=== PATIENT | female | born 1930 | race Caucasian/White ===

== ENCOUNTER 2019-03-05 14:03 | Emergency (ER) | payer MEDICARE ==
[~2019-03-05] VITALS: Ht 157.5 cm; Wt 53.1 kg
--- NOTE | 2019-03-05 14:20 | NUR ---
PT BIB SELF Sent by PCP FOR EVALUATION OF SOB AND LLE SWELLING, PT IS AAOX3, NOT IN RESPIRATORY DISTRESS ,HOOKED TO MONITOR, KEPT RESTED AND COMFORTABLE, WILL CONTINUE TO MONITOR.
--- NOTE | 2019-03-05 14:31 | NUR ---
AT BEDSIDE FOR EVAL.
[2019-03-05] MEDS ORDERED: FUROSEMIDE 40 MG/4 ML VIAL ONE (14:48)
--- NOTE | 2019-03-05 14:55 | NUR ---
IV LINE ESTABLISHED, BLOOD DRAWN AND SENT TO LAB
[2019-03-05] MEDS ORDERED: FUROSEMIDE 40 MG/4 ML VIAL IV ONE (15:00)
[2019-03-05 15:01] LABS: BASOPHILS # (AUTO) 0.1 /CMM (0.0-0.2); BASOPHILS % (AUTO) 1.8 % (0.0-2.0); EOSINOPHILS % (AUTO) 3.8 % (0.0-6.0); HEMATOCRIT 39 % (33-45); HEMOGLOBIN 12.9 g/dL (11.5-14.8); LYMPHOCYTES % (AUTO) 18.2 % (20.0-44.0); MEAN CORPUSCULAR HGB CONC 33 g/dl (31.0-36.0); MEAN CORPUSCULAR VOLUME 91 fL (82-100); MONOCYTES # (AUTO) 0.5 /CMM (0.1-1.30); MONOCYTES % (AUTO) 8.8 % (2.0-12.0); NEUTROPHILS # (AUTO) 3.7 /CMM (1.8-8.9); NEUTROPHILS % (AUTO) 67.4 % (43.0-81.0); PLATELET COUNT (AUTO) 261 /CMM (150-450); RED BLOOD CELL COUNT(AUTO) 4.31 MIL/uL (4.0-5.2); WHITE BLOOD COUNT (AUTO) 5.5 K/uL (4.3-11.0)
[2019-03-05 15:10] LABS: CALCIUM, SERUM 9.7 mg/dL (8.5-10.1); CARBON DIOXIDE 32 mmol/L (21-32); CHLORIDE 101 mmol/L (98-107); CREATININE 1.5 mg/dL (0.6-1.3); GLUCOSE 71 mg/dL (74-106); POTASSIUM 4.8 mmol/L (3.5-5.1); SODIUM SERUM 140 mmol/L (136-145); UREA NITROGEN, BLOOD 26 mg/dL (7-18)
[2019-03-05 15:23] LABS: B-TYPE NATRIURETIC PEPTIDE 2224 PG/ML (0-125)
--- NOTE | 2019-03-05 16:17 | NUR ---
[facility] PAGED
--- NOTE | 2019-03-05 16:38 | NUR ---
Patient does not wish to proceed with medical care recommended by Dr. Sanchez. Patient given information related to possible complications, up to and including , which could occur as a result of leaving the hospital at this time. Patient verbalizes understanding of risks involved due to leaving against medical advice. Patient has signed AMA form.
[2019-03-05 16:39] VITALS: BP 110/61
== END 2019-03-05 16:39 | disposition left against medical advice (07) ==
LOC: ER 14:10
DX: I11.0 Hypertensive heart disease with heart failure (principal); I50.9 Heart failure, unspecified; R60.0 Localized edema; Z95.0 Presence of cardiac pacemaker
CPT/HCPCS: 36415; 80048; 83880; 84484; 85025; 85730; 96374; 99283; J1940

== ENCOUNTER 2019-03-08 06:09 | Inpatient (IN) | payer MEDICARE ==
[~2019-03-08] VITALS: Ht 157.5 cm; Wt 47.4 kg
[2019-03-08] MEDS ORDERED: NITROGLYCERIN PACKET 1 GM PACKET ONE (06:28)
[2019-03-08] MEDS ORDERED: ASPIRIN 325 MG TABLET ONE (06:29)
--- NOTE | 2019-03-08 06:29 | NUR ---
PATIENT CAME TO ER BED 9 W/ DAUGHTER AND . PATIENT STATES THAT SHE HAS LEFT SIDED CHEST PAIN, DOES NOT RADIATE. PATIENT IS ON COUMADIN DAILY, PER PT AND DAUGHTER'S REPORT. AAOX4. NO SOB. BREATHING EVENLY AND UNLABORED. NOT IN ANY DISTRESS. 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
--- NOTE | 2019-03-08 06:29 | NUR ---
BLOOD DRAWN AND SENT TO LAB
[2019-03-08] MEDS ORDERED: NITROGLYCERIN PACKET 1 GM PACKET TD ONE (06:30)
[2019-03-08] MEDS ORDERED: ASPIRIN 325 MG TABLET PO ONE (06:30)
--- NOTE | 2019-03-08 07:00 | NUR ---
XRAY AT BEDSIDE
[2019-03-08 07:02] LABS: BASOPHILS % (AUTO) 0.5 % (0.0-2.0); EOSINOPHILS % (AUTO) 4.6 % (0.0-6.0); HEMATOCRIT 40 % (33-45); HEMOGLOBIN 13.1 g/dL (11.5-14.8); LYMPHOCYTES # (AUTO) 1.1 /CMM (0.8-4.8); LYMPHOCYTES % (AUTO) 23.2 % (20.0-44.0); MEAN CORPUSCULAR HGB CONC 33 g/dl (31.0-36.0); MEAN CORPUSCULAR VOLUME 91 fL (82-100); MONOCYTES # (AUTO) 0.6 /CMM (0.1-1.30); MONOCYTES % (AUTO) 13.7 % (2.0-12.0); NEUTROPHILS # (AUTO) 2.6 /CMM (1.8-8.9); PLATELET COUNT (AUTO) 247 /CMM (150-450); RED BLOOD CELL COUNT(AUTO) 4.42 MIL/uL (4.0-5.2); WHITE BLOOD COUNT (AUTO) 4.5 K/uL (4.3-11.0)
[2019-03-08 07:14] LABS: CALCIUM, SERUM 9.5 mg/dL (8.5-10.1); CARBON DIOXIDE 28 mmol/L (21-32); CHLORIDE 101 mmol/L (98-107); CREATININE 1.4 mg/dL (0.6-1.3); GLUCOSE 94 mg/dL (74-106); POTASSIUM 4.4 mmol/L (3.5-5.1); SODIUM SERUM 138 mmol/L (136-145); UREA NITROGEN, BLOOD 28 mg/dL (7-18)
[2019-03-08 07:26] LABS: ALANINE AMINOTRANSFERASE 16 U/L (12-78); ALBUMIN 3.9 g/dL (3.4-5.0); ALKALINE PHOSPHATASE 135 U/L (46-116); ASPARTATE AMINOTRANSFERASE 23 U/L (15-37); B-TYPE NATRIURETIC PEPTIDE 1972 PG/ML (0-125); BILIRUBIN,DIRECT 0.2 mg/dL (0.0-0.2); BILIRUBIN,TOTAL 0.7 mg/dL (0.2-1.0); TOTAL PROTEIN, SERUM 7.3 g/dL (6.4-8.2)
--- NOTE | 2019-03-08 07:29 | NUR ---
REPORT GIVEN TO VAN WHITT FOR GI[facility].
--- NOTE | 2019-03-08 07:29 | NUR ---
ENDORSEMENT RECEIVED FROM SOFIYA WHITT FOR GI[facility]
--- NOTE | 2019-03-08 07:51 | NUR ---
PAGED [facility] TO FOLLOW UP
[2019-03-08] MEDS ORDERED: FERR325T23 PO (08:23)
[2019-03-08] MEDS ORDERED: SPIR25TA6 PO (08:23)
[2019-03-08] MEDS ORDERED: FOLI0.8T PO (08:23)
[2019-03-08] MEDS ORDERED: WARF1TAB47 PO (08:23)
[2019-03-08] MEDS ORDERED: WARF2TAB57 PO (08:23)
[2019-03-08] MEDS ORDERED: METH2.5T14 PO (08:23)
[2019-03-08] MEDS ORDERED: TORS20TA3 PO (08:23)
--- NOTE | 2019-03-08 09:19 | NUR ---
REPORT GIVEN TO TANNER WHITT FOR ADMISSION
[2019-03-08 09:45] VITALS: BP 123/68
--- NOTE | 2019-03-08 09:45 | NUR ---
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 Pt c/o bilateral lower legs 4/10 pain, skin assessment done and picture taken, pt high fall risk, bed side commode next to bed for safety, call light within the pt. Dr. Mcintyre aware new pt and medications. Needs attendant and anticipated, safety precaution monitoring all the time.
[2019-03-08] MEDS ORDERED: ACETAMINOPHEN 325 MG TABLET PO PRN (10:30)
[2019-03-08] MEDS ORDERED: MAG HYDROX/AL HYDROX/SIMETH 30 ML UDC PO PRN (10:30)
[2019-03-08] MEDS ORDERED: MORPHINE SULFATE INJ 2 MG/ML DISP.SYRIN IV PRN (10:30)
[2019-03-08] MEDS ORDERED: HYDROCODONE/APAP 5/325MG 1 EACH TABLET PO PRN (10:30)
[2019-03-08] MEDS ORDERED: ZOLPIDEM TARTRATE 5 MG TABLET PO PRN (10:30)
[2019-03-08] MEDS ORDERED: ONDANSETRON HCL/PF 4 MG/2 ML VIAL IVP PRN (10:30)
[2019-03-08] MEDS ORDERED: NITROGLYCERIN 0.4 MG/TAB BOTTLE SL PRN (10:30)
[2019-03-08] MEDS ORDERED: MAGNESIUM HYDROXIDE 30 ML UDC PO PRN (10:30)
[2019-03-08] MEDS ORDERED: ENOXAPARIN SODIUM 40 MG/0.4 ML DISP.SYRIN SQ SCH (10:30)
[2019-03-08] MEDS ORDERED: Z GUARD REMEDY 2 OZ OINT TP PRN (10:30)
[2019-03-08] MEDS: ENOXAPARIN SODIUM 30 MG/0.3 ML DISP.SYRIN SQ SCH (12:28)
--- NOTE | 2019-03-08 13:35 | NUR ---
RN NOTES PATIENT WITH THE PT AT THIS TIME IN THE HALLWAY AMBULATING STABLE, REFUSED PAIN. PATENT STATE "I WILL GO HOME BECAUSE OF THANH TONIGHT, AND DO NOT GIVE MY HUSBANDS SHOES HE WANTED GO HOME EITHER". CONTINUED MONITORING.
[2019-03-08 16:00] VITALS: BP 119/67
[2019-03-08] MEDS: FERROUS SULFATE (325 MG) 325 MG/TAB TABLET PO SCH (16:19)
[2019-03-08] MEDS ORDERED: WARFARIN SODIUM 2 MG TABLET PO SCH (17:00)
--- NOTE | 2019-03-08 18:14 | NUR ---
Tele/RN Closing note Pt in bed, does no c/o chest pain or any discomfort. Skin is warm to touch, respiratory even and unlabored, no wheezing or crackle sound observed. Pt is taking Coumadin, no s/s of bleeding from blood thinner. Pt wants take torsemide 20 mg, because she did not take today due to admitted in this unit. Called pharmacy and will be schedule torsemide 20 mg today. Call light within reach, will continue to monitor.
[2019-03-08] MEDS ORDERED: TORSEMIDE 20 MG TABLET PO ONE (18:30)
--- NOTE | 2019-03-08 19:58 | NUR ---
MS/RN ON BED SIDE REPORT AT 1930, PATIENT WAS IN BED AWAKE, ALERT, ORIENTED, COMFORTABLE, NO C/O PAIN, NO DISTRESS NOTED, CALL LIGHT IN REACH. WILL MONITOR.
[2019-03-08 20:34] VITALS: BP 159/80
[2019-03-08 20:41] VITALS: BP 136/69
[2019-03-09] VITALS: BP 129/63
--- NOTE | 2019-03-09 02:02 | NUR ---
MS/RN PATIENT IS SLEEPING AT THIS TIME, APPEAR COMFORTABLE, NO SIGNS OF DISTRESS NOTED, CALL LIGHT IN REACH. WILL CONTINUE TO MONITOR.
[2019-03-09 04:00] VITALS: BP 100/43
--- NOTE | 2019-03-09 06:27 | NUR ---
MS/RN PATIENT IS AWAKE, ALERT, ORIENTED, COMFORTABLE, NO C/O PAIN, NO DISTRESS NOTED, ALL NEEDS ATTENDED AT THIS TIME, WILL CONTINUE TO MONITOR.
[2019-03-09 06:34] LABS: BASOPHILS % (AUTO) 0.3 % (0.0-2.0); EOSINOPHILS % (AUTO) 3.9 % (0.0-6.0); HEMATOCRIT 37 % (33-45); HEMOGLOBIN 12.4 g/dL (11.5-14.8); LYMPHOCYTES # (AUTO) 0.8 /CMM (0.8-4.8); MEAN CORPUSCULAR HGB CONC 34 g/dl (31.0-36.0); MEAN CORPUSCULAR VOLUME 91 fL (82-100); MONOCYTES # (AUTO) 0.6 /CMM (0.1-1.30); MONOCYTES % (AUTO) 16.6 % (2.0-12.0); NEUTROPHILS # (AUTO) 2.2 /CMM (1.8-8.9); NEUTROPHILS % (AUTO) 58.2 % (43.0-81.0); PLATELET COUNT (AUTO) 197 /CMM (150-450); RED BLOOD CELL COUNT(AUTO) 4.06 MIL/uL (4.0-5.2); WHITE BLOOD COUNT (AUTO) 3.7 K/uL (4.3-11.0)
[2019-03-09 07:07] LABS: B-TYPE NATRIURETIC PEPTIDE 3114 PG/ML (0-125); CARBON DIOXIDE 28 mmol/L (21-32); CHLORIDE 105 mmol/L (98-107); CREATININE 1.4 mg/dL (0.6-1.3); GLUCOSE 92 mg/dL (74-106); MAGNESIUM 2.3 mg/dL (1.8-2.4); POTASSIUM 4.1 mmol/L (3.5-5.1); SODIUM SERUM 142 mmol/L (136-145); UREA NITROGEN, BLOOD 33 mg/dL (7-18)
[2019-03-09 07:13] LABS: CHOLESTEROL 144 mg/dL (<200); HDL CHOLESTEROL 47 mg/dL (40-60); LDL 88 mg/dL (0-99); THYROID STIMULATING HORMONE 3.803 uIU/mL (0.358-3.74); TRIGLYCERIDES 64 mg/dL (30-150)
--- NOTE | 2019-03-09 07:55 | NUR ---
ms rn received on bed, awake,alert,oriented x 4,not in any form of distress, respirations even and unlabored,no sob noted, lungs are diminished,abdomen soft,positive bowel sounds, denies pain at this time, will monitor patient.
[2019-03-09 08:00] VITALS: BP 127/73
--- NOTE | 2019-03-09 08:30 | NUR ---
ms nr breakfast served,due meds given, tolerated well.
[2019-03-09] MEDS ORDERED: SPIRONOLACTONE 25 MG TABLET PO SCH (09:00)
[2019-03-09] MEDS ORDERED: TORSEMIDE 20 MG TABLET PO SCH (09:00)
[2019-03-09] MEDS: ASPIRIN EC 81 MG TABLET.DR PO SCH ×2 (09:00→10:00)
[2019-03-09] MEDS ORDERED: FOLIC ACID 1 MG TABLET PO SCH (09:00)
--- NOTE | 2019-03-09 10:00 | NUR ---
ms sonal was seen by bailey luis, with orders made and carried out.
[2019-03-09] MEDS: FERROUS SULFATE (325 MG) 325 MG/TAB TABLET PO SCH (10:01)
[2019-03-09] MEDS: ENOXAPARIN SODIUM 30 MG/0.3 ML DISP.SYRIN SQ SCH (10:02)
--- NOTE | 2019-03-09 14:00 | NUR ---
ms rn daughter called, want to pic up her mother later, was told that no order yet, but insisted, paged sophia cooper for her to be discharge today, cn notified.
[2019-03-09 16:00] VITALS: BP 138/58
[2019-03-09] MEDS ORDERED: WARFARIN SODIUM 1 MG TABLET PO SCH (17:00)
--- NOTE | 2019-03-09 17:14 | NUR ---
ms rn on bed, no distress noted.
--- NOTE | 2019-03-09 18:30 | NUR ---
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
[2019-03-14] MEDS ORDERED: METHOTREXATE SODIUM (2.5MG) 2.5 MG TABLET PO SCH (09:00)
== END 2019-03-09 18:30 | disposition home or self-care (01) | DRG 280 ==
LOC: ER 06:11 → TELE 09:22 → MED 03-09 08:40
PROVIDERS: ATTEND Internal Medicine
DX: I13.0 Hypertensive heart and chronic kidney disease with heart failure and stage 1 through stage 4 chronic kidney disease, or unspecified chronic kidney disease (principal); I21.A1 Myocardial infarction type 2; I50.33 Acute on chronic diastolic (congestive) heart failure; D68.59 Other primary thrombophilia; D68.32 Hemorrhagic disorder due to extrinsic circulating anticoagulants; I48.91 Unspecified atrial fibrillation; M06.9 Rheumatoid arthritis, unspecified; T45.515A Adverse effect of anticoagulants, initial encounter; Y92.89 Other specified places as the place of occurrence of the external cause; Z95.0 Presence of cardiac pacemaker; I07.1 Rheumatic tricuspid insufficiency; N18.9 Chronic kidney disease, unspecified; I27.20 Pulmonary hypertension, unspecified
CPT/HCPCS: 36415; 71045-TC; 80048-TC; 80061-TC; 80076-TC; 83735-TC; 83880; 84100-TC; 84443-TC; 84484-TC; 85025-TC; 85610-TC; 87081-TC; 93307-TC; 97116-TC; G0378; J1650